=== PATIENT | female | born 1945 | race Two or more races ===

== ENCOUNTER 2020-07-13 11:36 | Outpatient (CLI) | payer OTHER | END 2020-07-13 14:34 | disposition home or self-care (01) | LOC: PPH VACUNA 11:36 | PROVIDERS: ATTEND Emergency Medicine Pediatric Emergency Medicine | DX: Z23 Encounter for immunization (principal) ==

== ENCOUNTER 2020-11-24 16:01 | Outpatient (CLI) | payer OTHER | END 2020-11-24 16:02 | disposition home or self-care (01) | LOC: LAB 16:01 | DX: N30.00 Acute cystitis without hematuria (principal) ==

== ENCOUNTER 2023-07-27 16:27 | Outpatient (CLI) | payer OTHER | END 2023-07-27 16:29 | disposition home or self-care (01) | LOC: SONOGRAMA 16:27 | PROVIDERS: ATTEND Pathology Anatomic Pathology & Clinical Pathology | DX: D34 Benign neoplasm of thyroid gland (principal); E04.2 Nontoxic multinodular goiter ==